=== PATIENT | male | born 1940 | race Caucasian/White ===

== ENCOUNTER → 2017-12-10 | Outpatient (CLI) | payer MEDICARE, BC ==
[~2017-12-10] MED LIST: ASPIRIN 32325 MG/TAB PO; ATORVASTATIN PO; EPA/GLA1 SGL PO; HEXAVITAMIN1 CAP PO; POLYMYXIN B/TRIMETH OD; PRAVACHOL10 MG PO; SOTALOL HCL160 MG PO
== END ==
LOC: COL.RAD 08:44
DX: C61 Malignant neoplasm of prostate (principal); K76.0 Fatty (change of) liver, not elsewhere classified; M43.06 Spondylolysis, lumbar region; M47.816 Spondylosis without myelopathy or radiculopathy, lumbar region; M43.16 Spondylolisthesis, lumbar region; M41.9 Scoliosis, unspecified
CPT/HCPCS: Q9967

== ENCOUNTER → 2020-03-15 | Outpatient (CLI) | payer MEDICARE, BC ==
[~2020-03-15] MED LIST changes: +CIALIS5 MG PO; +CLARISPRAY9.9 ML NS; +OMEGA-3 1000 MG1 CAP PO; +PRIL40 PO
== END ==
LOC: COL.RAD 08:52
DX: R97.20 Elevated prostate specific antigen [PSA] (principal); M89.9 Disorder of bone, unspecified
CPT/HCPCS: A9503

== ENCOUNTER → 2020-05-03 | Outpatient (CLI) | payer MEDICARE, BC ==
[~2020-05-03] MED LIST changes: +ARICEPT10 MG PO; +BETAPACE160 MG PO; -HEXAVITAMIN1 CAP PO; +NAMENDA 10MG TA10 MG PO; +PRILOTC; -SOTALOL HCL160 MG PO; +THERAGRAN TAB1 UDTAB PO; +ZYRTEC 10MG10 MG PO
[2020-05-03 17:32] LABS: BILIRUBIN,TOTAL 1.2 mg/dL (0.0-1.0); CALCIUM 10.5 mg/dL (8.4-10.2); CREATININE, serum 0.95 (0.66-1.25); POTASSIUM 4.3 mmol/L (3.4-5.0); TOTAL PROTEIN 7.4 gm/dL (6.4-8.2)
[2020-05-03 18:02] LABS: THYROID STIMULATING HORMONE 2.16 uIU/mL (0.465-4.680)
== END ==
LOC: ZCOL.LAB 17:08
PROVIDERS: Internal Medicine
DX: C61 Malignant neoplasm of prostate (principal); R60.0 Localized edema; R06.00 Dyspnea, unspecified; R53.1 Weakness